=== PATIENT | male | born 1975 | race Two or more races ===

== ENCOUNTER 2017-02-09 17:07 | Emergency (ER) | payer OTHER ==
[~2017-02-09] VITALS: Ht 170.2 cm; Wt 72.6 kg
[2017-02-09] MEDS ORDERED: LORAZEPAM INJ 2 MG/ML VIAL IV STA (17:37)
[2017-02-09] MEDS ORDERED: ASPIRIN 325 MG TABLET PO STA (17:37)
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
[2017-02-09] MEDS ORDERED: IV SET PRIMARY 1 EA INFUS.SET MC ONE (17:53)
[2017-02-09] MEDS ORDERED: ASPIRIN 325 MG TABLET ONE (17:53)
[2017-02-09] MEDS ORDERED: IV NS 0.9% 1,000 ML ONE (17:53)
[2017-02-09] MEDS ORDERED: LORAZEPAM INJ 2 MG/ML VIAL ONE (17:54)
[2017-02-09] MEDS ORDERED: IV NS 0.9% 1,000 ML BAG IV ONE (18:00)
[2017-02-09 18:04] LABS: BASOPHILS # (AUTO) 0.1 /CMM (0.0-0.2); BASOPHILS % (AUTO) 0.9 % (0.0-2.0); EOSINOPHILS # (AUTO) 0.2 /CMM (0.0-0.7); EOSINOPHILS % (AUTO) 1.8 % (0.0-6.0); HEMATOCRIT 47 % (39-51); HEMOGLOBIN 15.6 g/dL (13.5-17.5); LYMPHOCYTES # (AUTO) 2.9 /CMM (0.8-4.8); LYMPHOCYTES % (AUTO) 27.4 % (20.0-44.0); MEAN CORPUSCULAR HEMOGLOBIN 30 PG (26.0-33.0); MEAN CORPUSCULAR HGB CONC 33 g/dl (31.0-36.0); MEAN CORPUSCULAR VOLUME 92 fL (80-96); MONOCYTES # (AUTO) 0.5 /CMM (0.1-1.30); NEUTROPHILS % (AUTO) 64.9 % (43.0-81.0); PLATELET COUNT (AUTO) 267 /CMM (150-450); RDW COEFFICIENT OF VARIATION 13.8 (11.5-15.0); RED BLOOD CELL COUNT(AUTO) 5.16 MIL/uL (4.5-6.0); WHITE BLOOD COUNT (AUTO) 10.7 K/uL (4.3-11.0)
[2017-02-09 18:13] LABS: CALCIUM, SERUM 9.6 mg/dL (8.5-10.1); CARBON DIOXIDE 32 mmol/L (21-32); CHLORIDE 103 mmol/L (98-107); CREATININE 0.9 mg/dL (0.6-1.3); GLUCOSE 95 mg/dL (74-106); POTASSIUM 3.9 mmol/L (3.5-5.1); SODIUM SERUM 139 mmol/L (136-145); UREA NITROGEN, BLOOD 20 mg/dL (7-18)
[2017-02-09 18:19] LABS: ALANINE AMINOTRANSFERASE 16 U/L (12-78); ALBUMIN 3.9 g/dL (3.4-5.0); ALKALINE PHOSPHATASE 65 U/L (46-116); ASPARTATE AMINOTRANSFERASE 25 U/L (15-37); BILIRUBIN,TOTAL 0.2 mg/dL (0.2-1.0); TOTAL PROTEIN, SERUM 7.3 g/dL (6.4-8.2)
[2017-02-09 18:21] LABS: TROPONIN I < 0.017 ng/mL (0.00-0.056)
--- NOTE | 2017-02-09 18:51 | NUR ---
IV removed. Catheter intact and site benign. Pressure and 4x4 applied to site. No bleeding noted. Patient discharged to home in stable condition. Written and verbal after care instructions given. Patient verbalizes understanding of instruction. INSTRUCTED NOT TO DRIVE.
[2017-02-09 18:54] VITALS: BP 106/57
== END 2017-02-09 18:55 | disposition home or self-care (01) ==
LOC: ER 17:09
DX: R07.89 Other chest pain (principal); I10 Essential (primary) hypertension; F17.200 Nicotine dependence, unspecified, uncomplicated
CPT/HCPCS: 36415; 71010-TC; 80053-TC; 84484-TC; 85025-TC; A4606; J2060; J7030; Z7610

== ENCOUNTER 2017-07-05 10:56 | Emergency (ER) | payer SELFPAY ==
[~2017-07-05] VITALS: Ht 170.2 cm; Wt 74.8 kg
--- NOTE | 2017-07-05 11:00 | NUR ---
PRESENTS TO ER C/O ON/OFF LEFT SIDED CP RADIATES TO LEFT ARM X 2 DAYS. PATIENT IS A/OX 4. BREATHING EVEN AND UNLABORED. NO SOB. SKIN WARM AND DRY. VITALS STABLE. SAFETY AND COMFORT MEASURES IN PLACE. AWAITING MD ORDERS.
--- NOTE | 2017-07-05 11:25 | NUR ---
NEW IV STARTED ON RAC, 18 G. BLOOD DRAWN AND SENT TO LAB.
[2017-07-05 11:33] LABS: BASOPHILS % (AUTO) 0.5 % (0.0-2.0); EOSINOPHILS # (AUTO) 0.2 /CMM (0.0-0.7); EOSINOPHILS % (AUTO) 1.8 % (0.0-6.0); HEMATOCRIT 44 % (39-51); HEMOGLOBIN 14.6 g/dL (13.5-17.5); LYMPHOCYTES # (AUTO) 2.3 /CMM (0.8-4.8); LYMPHOCYTES % (AUTO) 25.5 % (20.0-44.0); MEAN CORPUSCULAR HEMOGLOBIN 30 PG (26.0-33.0); MEAN CORPUSCULAR HGB CONC 33 g/dl (31.0-36.0); MEAN CORPUSCULAR VOLUME 91 fL (80-96); MONOCYTES # (AUTO) 0.5 /CMM (0.1-1.30); MONOCYTES % (AUTO) 5.4 % (2.0-12.0); NEUTROPHILS # (AUTO) 6.1 /CMM (1.8-8.9); NEUTROPHILS % (AUTO) 66.8 % (43.0-81.0); PLATELET COUNT (AUTO) 242 /CMM (150-450); RED BLOOD CELL COUNT(AUTO) 4.79 MIL/uL (4.5-6.0); WHITE BLOOD COUNT (AUTO) 9.1 K/uL (4.3-11.0)
[2017-07-05 11:43] LABS: CALCIUM, SERUM 8.9 mg/dL (8.5-10.1); CARBON DIOXIDE 29 mmol/L (21-32); CHLORIDE 104 mmol/L (98-107); CREATININE 0.9 mg/dL (0.6-1.3); GLUCOSE 116 mg/dL (74-106); POTASSIUM 3.8 mmol/L (3.5-5.1); SODIUM SERUM 138 mmol/L (136-145); UREA NITROGEN, BLOOD 17 mg/dL (7-18)
[2017-07-05 11:49] LABS: INR 0.88 (0.87-1.13); PROTHROMBIN TIME 9.2 SECS (9.5-12.7)
[2017-07-05 11:51] LABS: TROPONIN I < 0.017 ng/mL (0.00-0.056)
[2017-07-05] MEDS ORDERED: IBUPROFEN 600 MG TABLET PO ONE (12:04)
[2017-07-05] MEDS: IBUPROFEN 600 MG TABLET PO ONE (12:07)
--- NOTE | 2017-07-05 12:07 | NUR ---
PATIENT MEDICATED PER MD ORDERS.
[2017-07-05 12:16] LABS: D-DIMER 0.19 mg/L(FEU (0.17-0.50)
[2017-07-05 12:40] VITALS: BP 124/68
--- NOTE | 2017-07-05 12:51 | NUR ---
IV removed. Catheter intact and site benign. Pressure and 4x4 applied to site. No bleeding noted. Patient discharged to home in stable condition. Written and verbal after care instructions given. Patient verbalizes understanding of instruction.
== END 2017-07-05 12:51 | disposition home or self-care (01) ==
LOC: ER 10:58
DX: R07.9 Chest pain, unspecified (principal)
CPT/HCPCS: 36415; 71010-TC; 80048-TC; 84484-TC; 85025-TC; 85378-TC; 85730-TC; A4606; Z7610

== ENCOUNTER 2019-06-04 12:24 | Emergency (ER) | payer OTHER ==
[~2019-06-04] VITALS: Ht 170.2 cm; Wt 79.4 kg
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
--- NOTE | 2019-06-04 12:30 | NUR ---
PT CAME INTO THE ED C/O FACIAL NUMBNESS. PT STATED IT STARTED AT 0730. PT AAOX4, VSS, BREATHING EVEN AND UNLABORED IN ROOM AIR. PT CONNECTED TO THE MONITOR. BLOOD DRAWN AND SENT TO LAB
--- NOTE | 2019-06-04 12:55 | NUR ---
DR ARMANDO AT BEDSIDE
[2019-06-04] MEDS ORDERED: IBUPROFEN 600 MG TABLET PO ONE ×2 (13:00→13:03)
[2019-06-04] MEDS ORDERED: AMOX/CLAVULANATE 875 MG TABLET PO ONE (13:00)
[2019-06-04] MEDS ORDERED: IV NS 0.9% 1,000 ML BAG IV ONE (13:00)
[2019-06-04] MEDS ORDERED: AMOX/CLAVULANATE 875 MG TABLET ONE (13:03)
[2019-06-04 13:06] LABS: BASOPHILS # (AUTO) 0.1 /CMM (0.0-0.2); BASOPHILS % (AUTO) 0.6 % (0.0-2.0); EOSINOPHILS % (AUTO) 0.7 % (0.0-6.0); HEMATOCRIT 49 % (39-51); HEMOGLOBIN 16.2 g/dL (13.5-17.5); LYMPHOCYTES # (AUTO) 2.1 /CMM (0.8-4.8); LYMPHOCYTES % (AUTO) 13.5 % (20.0-44.0); MEAN CORPUSCULAR HGB CONC 33 g/dl (31.0-36.0); MEAN CORPUSCULAR VOLUME 93 fL (80-96); MONOCYTES # (AUTO) 0.5 /CMM (0.1-1.30); MONOCYTES % (AUTO) 3.2 % (2.0-12.0); PLATELET COUNT (AUTO) 287 /CMM (150-450); RED BLOOD CELL COUNT(AUTO) 5.24 MIL/uL (4.5-6.0); WHITE BLOOD COUNT (AUTO) 15.9 K/uL (4.3-11.0)
[2019-06-04 13:26] LABS: CALCIUM, SERUM 9.4 mg/dL (8.5-10.1); CARBON DIOXIDE 30 mmol/L (21-32); CHLORIDE 104 mmol/L (98-107); CREATININE 0.9 mg/dL (0.6-1.3); GLUCOSE 109 mg/dL (74-106); POTASSIUM 4.3 mmol/L (3.5-5.1); SODIUM SERUM 140 mmol/L (136-145); UREA NITROGEN, BLOOD 16 mg/dL (7-18)
--- NOTE | 2019-06-04 13:57 | NUR ---
Patient discharged to home in stable condition. Written and verbal after care instructions given. Patient verbalizes understanding of instruction.IV removed. Catheter intact and site benign. Pressure and 4x4 applied to site. No bleeding noted.
[2019-06-04 13:59] VITALS: BP 128/72
== END 2019-06-04 14:00 | disposition home or self-care (01) ==
LOC: ER 12:25
DX: K04.7 Periapical abscess without sinus (principal); F17.200 Nicotine dependence, unspecified, uncomplicated; I10 Essential (primary) hypertension
CPT/HCPCS: 36415; 71045; 80048; 84484; 85025; 93005; 99284; 99406; J7030